=== PATIENT | female | born 1945 | race Caucasian/White ===

== ENCOUNTER 2017-09-02 11:06 | Inpatient (IN) | payer MEDICARE, MEDICAID ==
[~2017-09-02] VITALS: Ht 165.1 cm; Wt 48.1 kg
[~2017-09-02 11:06] MED LIST: ASCO-340 PO; FOLI1TAB16 PO; GABA-534 PO; LACT10SO69 PO; METO-302 PO; TRAM50TA2 PO
[2017-09-02] MEDS ORDERED: IV NS 0.9% 1,000 ML BAG IV ONE ×2 (11:30→12:30)
[2017-09-02 11:31] LABS: BASOPHILS % (AUTO) 0.4 % (0.0-2.0); EOSINOPHILS % (AUTO) 0.9 % (0.0-6.0); HEMATOCRIT 37 % (33-45); LYMPHOCYTES # (AUTO) 0.4 /CMM (0.8-4.8); LYMPHOCYTES % (AUTO) 10.1 % (20.0-44.0); MEAN CORPUSCULAR HEMOGLOBIN 26 PG (26.0-33.0); MEAN CORPUSCULAR HGB CONC 33 g/dl (31.0-36.0); MEAN CORPUSCULAR VOLUME 81 fL (82-100); MONOCYTES # (AUTO) 0.2 /CMM (0.1-1.30); MONOCYTES % (AUTO) 5.1 % (2.0-12.0); NEUTROPHILS # (AUTO) 3.8 /CMM (1.8-8.9); NEUTROPHILS % (AUTO) 83.5 % (43.0-81.0); PLATELET COUNT (AUTO) 151 /CMM (150-450); RDW COEFFICIENT OF VARIATION 16.9 (11.5-15.0); RED BLOOD CELL COUNT(AUTO) 4.56 MIL/uL (4.0-5.2); WHITE BLOOD COUNT (AUTO) 4.4 K/uL (4.3-11.0)
[2017-09-02] MEDS ORDERED: METO25TA3 PO (11:46)
[2017-09-02] MEDS ORDERED: GABA-534 PO (11:46)
[2017-09-02] MEDS ORDERED: TRAM50TA2 PO (11:46)
[2017-09-02] MEDS ORDERED: THIA100T13 PO (11:52)
[2017-09-02] MEDS ORDERED: ESCI10TA PO (11:52)
[2017-09-02 11:54] LABS: ALBUMIN 3.1 g/dL (3.4-5.0); BILIRUBIN,DIRECT 0.6 mg/dL (0.0-0.2); BILIRUBIN,TOTAL 1.7 mg/dL (0.2-1.0); CALCIUM, SERUM 9.4 mg/dL (8.5-10.1); CREATININE 0.7 mg/dL (0.6-1.3); TOTAL PROTEIN, SERUM 7.4 g/dL (6.4-8.2)
[2017-09-02 11:56] LABS: POTASSIUM 2.8 mmol/L (3.5-5.1)
[2017-09-02] MEDS ORDERED: POTASSIUM CHLORIDE 20 MEQ TAB.PRT.SR PO ONE ×4 (12:30→22:02)
[2017-09-02 12:35] LABS: ALCOHOL, BLOOD < 3 mg/dL (0-0)
[2017-09-02 12:39] LABS: APPEARANCE,URINE Clear (CLEAR); BILIRUBIN,URINE SMALL (NEGATIVE); BLOOD, URINE Small Ery/uL (NEGATIVE); COLOR,URINE Yellow (YELLOW); KETONES,URINE 15 (NEGATIVE); LEUKOCYTE ESTERASE ,URINE Moderate (NEGATIVE); NITRITE, URINE Positive (NEGATIVE); PROTEIN,URINE Negative (NEGATIVE); UGLUCOSE Negative (NEGATIVE)
[2017-09-02 12:50] LABS: BACTERIA,URINE 3+ /HPF (None Seen); SQUAMOUS EPITHELIAL CELL,UR Few /HPF (None Seen)
[2017-09-02] MEDS ORDERED: CEFTRIAXONE 1GM BAG (ER ONLY) 1 GM/50 ML PIGGYBACK IV ONE (13:00)
[2017-09-02] MEDS ORDERED: CEFTRIAXONE 1GM BAG (ER ONLY) 50 ML IV ONE (13:15)
[2017-09-02 16:00] VITALS: BP 132/82
[2017-09-02 16:30] VITALS: BP 132/82
[2017-09-02] MEDS ORDERED: ONDANSETRON HCL/PF 4 MG/2 ML VIAL IVP PRN (16:30)
[2017-09-02] MEDS ORDERED: MAGNESIUM HYDROXIDE 30 ML UDC PO PRN (16:30)
[2017-09-02] MEDS ORDERED: MAG HYDROX/AL HYDROX/SIMETH 30 ML UDC PO PRN (16:30)
[2017-09-02] MEDS ORDERED: Z GUARD REMEDY 2 OZ OINT TP PRN (16:30)
[2017-09-02] MEDS ORDERED: ZOLPIDEM TARTRATE 5 MG TABLET PO PRN (16:30)
[2017-09-02] MEDS ORDERED: Folic acid 1 MG in IV D5W 50 ML IV SCH (17:00)
[2017-09-02] MEDS ORDERED: TRAMADOL HCL 50 MG TABLET PO PRN (17:00)
[2017-09-02] MEDS: IV D5/0.45 NACL 1,000 ML IV PRN (17:13)
[2017-09-02] MEDS: GABAPENTIN 300 MG CAPSULE PO SCH (17:19)
[2017-09-02] MEDS ORDERED: Thiamine 100 MG in IV D5W 50 ML IV SCH (18:00)
[2017-09-02] MEDS: POTASSIUM CL. PREMIX PERIPHER. 50 ML IV SCH ×4 (18:10→19:30)
[2017-09-02 20:00] VITALS: BP 140/76
[2017-09-02] MEDS: ACETAMINOPHEN 325 MG TABLET PO PRN (20:37)
[2017-09-03 07:17] LABS: ALBUMIN 2.6 g/dL (3.4-5.0); BILIRUBIN,TOTAL 0.9 mg/dL (0.2-1.0); CALCIUM, SERUM 8.8 mg/dL (8.5-10.1); CREATININE 0.6 mg/dL (0.6-1.3); MAGNESIUM 1.4 mg/dL (1.8-2.4); PHOSPHORUS 2.3 mg/dL (2.5-4.9); POTASSIUM 3.7 mmol/L (3.5-5.1); TOTAL PROTEIN, SERUM 6.4 g/dL (6.4-8.2)
[2017-09-03 07:29] LABS: BASOPHILS % (AUTO) 0.4 % (0.0-2.0); EOSINOPHILS # (AUTO) 0.1 /CMM (0.0-0.7); EOSINOPHILS % (AUTO) 3.6 % (0.0-6.0); HEMATOCRIT 33 % (33-45); HEMOGLOBIN 11.2 g/dL (11.5-14.8); LYMPHOCYTES # (AUTO) 0.9 /CMM (0.8-4.8); LYMPHOCYTES % (AUTO) 23.2 % (20.0-44.0); MEAN CORPUSCULAR HEMOGLOBIN 28 PG (26.0-33.0); MEAN CORPUSCULAR HGB CONC 34 g/dl (31.0-36.0); MEAN CORPUSCULAR VOLUME 81 fL (82-100); MONOCYTES # (AUTO) 0.3 /CMM (0.1-1.30); MONOCYTES % (AUTO) 8.2 % (2.0-12.0); NEUTROPHILS # (AUTO) 2.6 /CMM (1.8-8.9); NEUTROPHILS % (AUTO) 64.6 % (43.0-81.0); PLATELET COUNT (AUTO) 141 /CMM (150-450); RDW COEFFICIENT OF VARIATION 18.1 (11.5-15.0); RED BLOOD CELL COUNT(AUTO) 4.08 MIL/uL (4.0-5.2); RETICULOCYTE COUNT 1.3 % (0.6-2.5); THYROID STIMULATING HORMONE 0.546 uIU/mL (0.358-3.74)
[2017-09-03 07:35] LABS: INR 1.21 (0.87-1.13); PROTHROMBIN TIME 12.6 SECS (9.5-12.7)
[2017-09-03 07:56] VITALS: BP 152/82
[2017-09-03 08:00] VITALS: BP 152/82
[2017-09-03] MEDS: ASCORBIC ACID 500 MG TABLET PO SCH (08:35)
[2017-09-03] MEDS: METOPROLOL SUCCINATE 25 MG TAB.SR.24H PO SCH (08:35)
[2017-09-03] MEDS: NICOTINE PATCH (14MG) 14 MG PATCH.TD24 TD SCH ×2 (08:35→08:38)
[2017-09-03] MEDS: GABAPENTIN 300 MG CAPSULE PO SCH ×3 (08:35→16:51)
[2017-09-03] MEDS: ESCITALOPRAM OXALATE (10 MG) 10 MG TABLET PO SCH (08:35)
[2017-09-03] MEDS: ACETAMINOPHEN 325 MG TABLET PO PRN (08:36)
[2017-09-03] MEDS ORDERED: POTASSIUM PHOSPHATE MM 15 MMOL in IV D5W 250 ML IV SCH (10:00)
[2017-09-03] MEDS ORDERED: Magnesium 1GM/D5W 100ML PREMIX 100 ML IV SCH ×3 (10:00)
[2017-09-03] MEDS: POTASSIUM PHOSPHATE MM 7.5 MMOL in IV D5W 100 ML IV SCH ×2 (11:44→14:45)
[2017-09-03] MEDS: IV D5/0.45 NACL 1,000 ML IV PRN (11:50)
[2017-09-03] MEDS: THIAMINE HCL 100 MG TABLET PO SCH (12:06)
[2017-09-03] MEDS: FOLIC ACID 1 MG TABLET PO SCH (12:06)
[2017-09-03] MEDS: CEFTRIAXONE 1 G in IV D5W 50 ML IV SCH (12:55)
[2017-09-03 16:00] VITALS: BP 148/69
[2017-09-03 16:07] VITALS: BP 152/88
[2017-09-03 20:00] VITALS: BP 128/73
[2017-09-03] MEDS: MUPIROCIN OINT 2% 22 GM TUBE SCH (20:39)
[2017-09-04] MEDS: IV D5/0.45 NACL 1,000 ML IV PRN ×2 (02:35→17:28)
[2017-09-04 06:31] LABS: BASOPHILS % (AUTO) 0.5 % (0.0-2.0); EOSINOPHILS # (AUTO) 0.2 /CMM (0.0-0.7); EOSINOPHILS % (AUTO) 5.5 % (0.0-6.0); HEMATOCRIT 32 % (33-45); LYMPHOCYTES % (AUTO) 25.6 % (20.0-44.0); MEAN CORPUSCULAR HEMOGLOBIN 28 PG (26.0-33.0); MEAN CORPUSCULAR HGB CONC 34 g/dl (31.0-36.0); MEAN CORPUSCULAR VOLUME 82 fL (82-100); MONOCYTES # (AUTO) 0.3 /CMM (0.1-1.30); MONOCYTES % (AUTO) 7.2 % (2.0-12.0); NEUTROPHILS # (AUTO) 2.4 /CMM (1.8-8.9); NEUTROPHILS % (AUTO) 61.2 % (43.0-81.0); PLATELET COUNT (AUTO) 122 /CMM (150-450); RDW COEFFICIENT OF VARIATION 18.4 (11.5-15.0); RED BLOOD CELL COUNT(AUTO) 3.96 MIL/uL (4.0-5.2)
[2017-09-04 06:49] LABS: CALCIUM, SERUM 8.5 mg/dL (8.5-10.1); CREATININE 0.6 mg/dL (0.6-1.3); MAGNESIUM 1.8 mg/dL (1.8-2.4); PHOSPHORUS 3.1 mg/dL (2.5-4.9); POTASSIUM 3.6 mmol/L (3.5-5.1)
[2017-09-04 08:00] VITALS: BP 143/79
[2017-09-04] MEDS: NICOTINE PATCH (14MG) 14 MG PATCH.TD24 TD SCH (09:00)
[2017-09-04] MEDS: THIAMINE HCL 100 MG TABLET PO SCH (09:25)
[2017-09-04] MEDS: GABAPENTIN 300 MG CAPSULE PO SCH ×3 (09:25→17:27)
[2017-09-04] MEDS: FOLIC ACID 1 MG TABLET PO SCH (09:25)
[2017-09-04] MEDS: METOPROLOL SUCCINATE 25 MG TAB.SR.24H PO SCH (09:26)
[2017-09-04] MEDS: ESCITALOPRAM OXALATE (10 MG) 10 MG TABLET PO SCH (09:26)
[2017-09-04] MEDS: ASCORBIC ACID 500 MG TABLET PO SCH (09:26)
[2017-09-04] MEDS: MUPIROCIN OINT 2% 22 GM TUBE SCH ×2 (09:28→22:09)
[2017-09-04] MEDS: ACETAMINOPHEN 325 MG TABLET PO PRN (09:29)
[2017-09-04] MEDS: CEFTRIAXONE 1 G in IV D5W 50 ML IV SCH (12:47)
[2017-09-04 15:49] VITALS: BP 147/79
[2017-09-04 20:00] VITALS: BP 142/70
[2017-09-04 20:49] VITALS: BP 142/70
[2017-09-04] MEDS: HYDROCODONE/APAP 5/325MG 1 EACH TABLET PO PRN (22:08)
[2017-09-05 06:48] LABS: CALCIUM, SERUM 8.4 mg/dL (8.5-10.1); CREATININE 0.5 mg/dL (0.6-1.3); MAGNESIUM 1.6 mg/dL (1.8-2.4); PHOSPHORUS 2.7 mg/dL (2.5-4.9); POTASSIUM 3.5 mmol/L (3.5-5.1)
[2017-09-05 07:21] LABS: BASOPHILS % (AUTO) 0.5 % (0.0-2.0); EOSINOPHILS # (AUTO) 0.3 /CMM (0.0-0.7); EOSINOPHILS % (AUTO) 5.8 % (0.0-6.0); HEMATOCRIT 33 % (33-45); LYMPHOCYTES # (AUTO) 1.1 /CMM (0.8-4.8); LYMPHOCYTES % (AUTO) 22.8 % (20.0-44.0); MEAN CORPUSCULAR HEMOGLOBIN 28 PG (26.0-33.0); MEAN CORPUSCULAR HGB CONC 33 g/dl (31.0-36.0); MEAN CORPUSCULAR VOLUME 83 fL (82-100); MONOCYTES # (AUTO) 0.3 /CMM (0.1-1.30); MONOCYTES % (AUTO) 6.8 % (2.0-12.0); NEUTROPHILS % (AUTO) 64.1 % (43.0-81.0); PLATELET COUNT (AUTO) 119 /CMM (150-450); RED BLOOD CELL COUNT(AUTO) 3.98 MIL/uL (4.0-5.2); WHITE BLOOD COUNT (AUTO) 4.7 K/uL (4.3-11.0)
[2017-09-05 08:00] VITALS: BP 145/75
[2017-09-05] MEDS: NICOTINE PATCH (14MG) 14 MG PATCH.TD24 TD SCH (08:50)
[2017-09-05] MEDS: GABAPENTIN 300 MG CAPSULE PO SCH ×2 (08:53→13:09)
[2017-09-05] MEDS: ESCITALOPRAM OXALATE (10 MG) 10 MG TABLET PO SCH (08:54)
[2017-09-05] MEDS: THIAMINE HCL 100 MG TABLET PO SCH (08:54)
[2017-09-05] MEDS: FOLIC ACID 1 MG TABLET PO SCH (08:54)
[2017-09-05] MEDS: ASCORBIC ACID 500 MG TABLET PO SCH (08:54)
[2017-09-05] MEDS: METOPROLOL SUCCINATE 25 MG TAB.SR.24H PO SCH (08:55)
[2017-09-05] MEDS: MUPIROCIN OINT 2% 22 GM TUBE SCH (08:57)
[2017-09-05] MEDS: HYDROCODONE/APAP 5/325MG 1 EACH TABLET PO PRN (10:41)
[2017-09-05] MEDS: Magnesium 1GM/D5W 100ML PREMIX 100 ML IV SCH ×2 (11:13→12:14)
[2017-09-05] MEDS ORDERED: CEFP200T14 PO (12:28)
[2017-09-05] MEDS ORDERED: AMLO2.5T2 PO (12:28)
[2017-09-05] MEDS: ACETAMINOPHEN 325 MG TABLET PO PRN (15:30)
[2017-09-05 16:00] VITALS: BP 125/72
== END 2017-09-05 16:00 | DRG 689 ==
LOC: ER 11:07 → MED 15:38
PROVIDERS: ADMIT Internal Medicine; ATTEND Internal Medicine
DX: N39.0 Urinary tract infection, site not specified (principal); G93.41 Metabolic encephalopathy; E44.0 Moderate protein-calorie malnutrition; E87.0 Hyperosmolality and hypernatremia; T76.21XA Adult sexual abuse, suspected, initial encounter; Z68.1 Body mass index [BMI] 19.9 or less, adult; E87.6 Hypokalemia; Z59.0 Homelessness; I10 Essential (primary) hypertension; B96.20 Unspecified Escherichia coli [E. coli] as the cause of diseases classified elsewhere; D63.8 Anemia in other chronic diseases classified elsewhere; E61.1 Iron deficiency; E83.42 Hypomagnesemia; E86.0 Dehydration; F03.90 Unspecified dementia, unspecified severity, without behavioral disturbance, psychotic disturbance, mood disturbance, and anxiety; Z22.322 Carrier or suspected carrier of Methicillin resistant Staphylococcus aureus; F10.21 Alcohol dependence, in remission
CPT/HCPCS: 36415; 70450-TC; 71010-TC; 80048-TC; 80053-TC; 80061-TC; 80076-TC; 80305; 81000-TC; 82746; 83540-TC; 83605-TC; 83690-TC; 83735-TC; 84100-TC; 84443-TC; 85025-TC; 85045-TC; 85652-TC; 85730-TC; 87040-TC; 87081-TC; 87086-TC; 87186-TC; 93307-TC; 97116-TC; 97530-TC; A4606; G0480; J0696; J3411; J3475; J3480; J3490; J7030; J7040; J7060; Z7610